=== PATIENT | female | born 1985 | race Caucasian/White ===

== ENCOUNTER 2017-11-18 14:54 | Emergency (ER) | payer OTHER ==
[2017-11-18 15:08] VITALS: BP 127/83
--- NOTE | 2017-11-18 15:43 | UC ---
Respiratory Complaint HPI - HPI Summary HPI Summary: Started getting sick 6 days ago with scratchy throat, mild nasal congestion, and harsh cough. Continues to cough and blow nose with thick, tenacious sputum. Denies fever or audible wheezing. Has an old inhaler that she used last night with limited relief. Mainly concerned about coughing at night, as lying down seems to exacerbate PND and cough. Feels she can deal with symptoms during the day. - History of Current Complaint Chief Complaint: UCRespiratory Stated Complaint: COLD, COUGH Time Seen by Provider: 11/18/17 15:07 Hx Obtained From: Patient Hx Last Menstrual Period: 11/17/17 ?: No Onset/Duration: Gradual Onset, Lasting Days Timing: Constant Severity Initially: Mild Severity Currently: Moderate Character: Cough: Productive, Sputum Description: - thick, green Aggravating Factors: Deep Breaths, Recumbent Position Alleviating Factors: Upright Position Associated Signs And Symptoms: Positive: URI, Nasal Congestion. Negative: Fever , Chills - Allergies/Home Medications Allergies/Adverse Reactions: Allergies Allergy/AdvReac Type Severity Reaction Status Date / Time No Known Allergies Allergy Verified 09/22/16 19:08 PMH/Surg Hx/FS Hx/Imm Hx Previously Healthy: Yes - Surgical History Surgical History: Yes Surgery Procedure, Year, and Place: Right hip debridement - Family History Known Family History: Positive: Other - Anxiety and Depression on Maternal Side - Social History Occupation: Student Alcohol Use: Weekly Substance Use Type: None Smoking Status (MU): Light Every Day Tobacco Smoker Review of Systems Constitutional: Negative Skin: Negative Eyes: Negative ENT: Sore Throat, Nasal Discharge Respiratory: Cough Cardiovascular: Negative Gastrointestinal: Negative Genitourinary: Negative Motor: Negative Neurovascular: Negative Musculoskeletal: Negative Neurological: Negative Psychological: Negative Is Patient Immunocompromised?: No All Other Systems Reviewed And Are Negative: Yes Physical Exam Triage Information Reviewed: Yes Appearance: Well-Appearing, No Pain Distress, Well-Nourished Vital Signs: Initial Vital Signs Temp 99.9 F 11/18/17 15:01 Pulse 61 11/18/17 15:01 Resp 16 11/18/17 15:01 BP 127/83 11/18/17 15:01 Pulse Ox 100 11/18/17 15:01 Vital Signs Reviewed: Yes Eye Exam: Normal Eyes: Positive: Conjunctiva Clear ENT: Positive: Hearing grossly normal, Pharynx normal, Nasal congestion, TMs normal. Negative: Nasal drainage, TM bulging, TM dull, TM red Dental Exam: Normal Neck exam: Normal Neck: Positive: Supple, Nontender, No Lymphadenopathy Respiratory: Positive: Normal breath sounds, No respiratory distress, Other: - freq congested cough. Negative: Rhonchi, Wheezing Cardiovascular Exam: Normal Cardiovascular: Positive: RRR, No Murmur Musculoskeletal Exam: Normal Neurological Exam: Normal Neurological: Positive: Alert Psychological Exam: Normal Skin Exam: Normal - Feels afebrile to touch Diagnostic Evaluation - Laboratory O2 Sat by Pulse Oximetry: 100 Respiratory Course/Dx - Differential Dx/Diagnosis Provider Diagnoses: acute bronchitis, likely viral Discharge - Discharge Plan Condition: Stable Disposition: HOME Prescriptions: Benzonatate [Benzonatate 200 MG] 200 mg PO TID #30 cap Guaifenesin-Codeine [Guaiatussin AC] 5 - 10 ml PO Q6H #120 ml MDD 40mL Patient Education Materials: Acute Bronchitis (ED) Referrals: Mono Best MD [Primary Care Provider] - Additional Instructions: I expect your symptoms to gradually improve over the next 1-2 weeks. If you develop trouble breathing or fever, or if you worsen in any other way, please come back here for a recheck.
== END 2017-11-18 15:40 | disposition home or self-care (01) ==
LOC: UCEAST 14:54
DX: J20.9 Acute bronchitis, unspecified (principal); Z72.0 Tobacco use; Z77.22 Contact with and (suspected) exposure to environmental tobacco smoke (acute) (chronic)
CPT/HCPCS: 99212; G0463

== ENCOUNTER 2019-01-21 21:04 | Emergency (ER) | payer OTHER ==
--- NOTE | 2019-01-21 21:17 | UC ---
FLU HPI - HPI Summary HPI Summary: 33 yo female presents with low grade fever, body aches, fatigue, and dry cough that began yesterday. She has taken ibuprofen for her discomfort with mild relief. She also has some swelling to her right upper gum around a tooth and is concerned that this is infected due to a recent pop corn kernal that got stuck there. Denies SOB, chest pain, abdominal pain, n/v/d/c. - History of Current Complaint Stated Complaint: FLU-LIKE SYM Time Seen by Provider: 01/21/19 21:17 Hx Obtained From: Patient Hx Last Menstrual Period: 11/17/17 Onset/Duration: Sudden Onset Severity Currently: Moderate Severity Initially: Moderate Pain Intensity: 7 Pain Scale Used: 0-10 Numeric - Allergy/Home Medications Allergies/Adverse Reactions: Allergies Allergy/AdvReac Type Severity Reaction Status Date / Time No Known Allergies Allergy Verified 01/21/19 21:22 Home Medications: Home Medications Ibuprofen TAB* [Advil TAB*] 800 mg PO Q6H PRN 01/21/19 [History Confirmed ] PMH/Surg Hx/FS Hx/Imm Hx - Additional Past Medical History Additional PMH: None - Surgical History Surgical History: Yes Surgery Procedure, Year, and Place: Right hip debridement - Family History Known Family History: Positive: Other - Anxiety and Depression on Maternal Side - Social History Lives: With Family Alcohol Use: Weekly Substance Use Type: None Smoking Status (MU): Light Every Day Tobacco Smoker Review of Systems All Other Systems Reviewed And Are Negative: Yes Constitutional: Positive: Fever, Chills, Fatigue, Other - Body aches Skin: Positive: Negative Eyes: Positive: Negative ENT: Positive: Dental Pain, Sore Throat Respiratory: Positive: Cough Cardiovascular: Positive: Negative Gastrointestinal: Positive: Negative Neurovascular: Positive: Negative Musculoskeletal: Positive: Negative Neurological: Positive: Negative Psychological: Positive: Negative Physical Exam - Summary Physical Exam Summary: GENERAL: NAD. WDWN. No pain distress. SKIN: No rashes, sores, lesions, or open wounds. HEENT: Head: AT/NC Eyes: EOM intact. Conjunctiva clear without inflammation or discharge. Ears: Hearing grossly normal. TMs intact, no bulging, erythema, or edema. Nose: Nasal mucosa pink and moist. NTTP maxillary and frontal sinus. Throat: Posterior oropharynx without exudates, erythema, or tonsillar enlargement. Uvula midline. NECK: Supple. Nontender. No lymphadenopathy. CHEST: CTAB. No r/r/w. No accessory muscle use. Breathing comfortably and in no distress. CV: RRR. Without m/r/g. Pulses intact. Cap refill <2seconds NEURO: Alert. PSYCH: Age appropriate behavior. Triage Information Reviewed: Yes Vital Signs: Vital Signs: Temp Pulse Resp BP Pulse Ox 100.3 F 94 18 142/80 98 01/21/19 21:18 01/21/19 21:18 01/21/19 21:18 01/21/19 21:18 01/21/19 21:40 Laboratory Tests 01/21/19 21:32 Influenza A (Rapid) Positive A Vital Signs Reviewed: Yes Dental: Positive: Gross Decay/Caries @ - Throughout. Negative: Percussion Tenderness @, Dental Fracture @, Abscess @, Cellulitis @, Cervical Lymphadenopathy, Bleeding Flu Course/Dx - Course Course Of Treatment: POC flu positive. I do not see any abscess or indication of infection regarding her teeth, although she does have diffuse dental caries. - Differential Dx/Diagnosis Provider Diagnosis: Influenza Discharge - Sign-Out/Discharge Documenting (check all that apply): Patient Departure All imaging exams completed and their final reports reviewed: No Studies - Discharge Plan Condition: Stable Disposition: HOME Prescriptions: Chlorhexidine MW 0.12% 473ML* [Peridex Mouth Wash 0.12%] 15 ml MT BID #1 bottle Oseltamivir CAP* [Tamiflu CAP*] 75 mg PO BID #10 cap Patient Education Materials: Influenza (ED) Referrals: Mono Best MD [Primary Care Provider] - Additional Instructions: If you develop a fever, shortness of breath, chest pain, new or worsening symptoms - please call your PCP or go to the ED. Your blood pressure was high at todays visit. Please see your primary provider within 4 weeks for recheck and re-evaluation. Rest and drink plenty of fluids! Continue taking tylenol/ibuprofen for your fever - Billing Disposition and Condition Condition: STABLE Disposition: Home
[2019-01-21 21:22] VITALS: BP 142/80
[2019-01-21 21:36] LABS: Influenza A Molecular POSITIVE (Negative)
[2019-01-21] MEDS ORDERED: Oseltamivir CAP* 75 MG CAP PO ONE (21:38)
== END 2019-01-21 22:00 | disposition home or self-care (01) ==
LOC: UCEAST 21:04
DX: J11.1 Influenza due to unidentified influenza virus with other respiratory manifestations (principal); K06.8 Other specified disorders of gingiva and edentulous alveolar ridge; F17.290 Nicotine dependence, other tobacco product, uncomplicated
CPT/HCPCS: 99202; A9270-GY; G0463

== ENCOUNTER 2019-06-09 09:25 | Emergency (ER) | payer OTHER ==
--- NOTE | 2019-06-09 09:59 | ED ---
Palpitations / Dysrhythmia - HPI Summary HPI Summary: The patient is a 33 y/o F presenting to [facility] with a chief complaint of gradually worsening of palpitations over the past two weeks with worst episodes occurring yesterday. She reports that she has had intermittent episodes over the course of her life, but they had not been as frequent as they are now. Yesterday, she had experienced 9-10 episodes of and uncomfortable tickle that jumps into throat with associated mildly sharp CP lasting for 3 seconds with each episode. Currently, her pain is rated 1/10 in severity, and she did have an episode of palpitations in the ED since arrival. She denies any fever, chills , erythema of eyes, sore throat, SOB, cough, abdominal pain, N/V, dysuria, hematuria, myalgia, edema, rash, or dizziness. She states that she hasnt been on any recently long travels although she sits at a desk all day with moving around only once an hour, but she has had increased stress secondary to her son being hospitalized recently, which she suspects could be causing the prevalence of the palpitations. She also notes caffeine use with drinking one Thai press of coffee a day. She had some dehydration yesterday likely due to drinking 5- 6 drinks the night before. PCP recommended she come here. PMHx: asthma as child. No cardiac hx. Light every day cigarette smoker, weekly EtOH, no substance use. - History of Current Complaint Chief Complaint: EDDysrhythmPalp Time Seen by Provider: 06/09/19 09:28 Hx Obtained From: Patient Onset/Duration: Lasting Weeks - two, Still Present, Worse Since - yesterday Timing: Intermittent Episodes Lasting: - 3 seconds, up to 9-10 times in a day Severity Initially: Moderate Severity Currently: Mild Character: Irregular Aggravating: Caffeine, Other - possibly stress Alleviating: Nothing Associated Signs & Symptoms: Chest Pain - sharp with palpations - Allergy/Home Medications Allergies/Adverse Reactions: Allergies Allergy/AdvReac Type Severity Reaction Status Date / Time No Known Allergies Allergy Verified 01/21/19 21:22 Home Medications: Home Medications NK [No Home Medications Reported] 06/09/19 [History Confirmed 06/09/19] PMH/Surg Hx/FS Hx/Imm Hx Endocrine/Hematology History: Denies: Hx Diabetes, Hx Thyroid Disease Cardiovascular History: Denies: Hx Hypertension Respiratory History: Reports: Hx Asthma - CHILD Denies: Hx Chronic Obstructive Pulmonary Disease (COPD) GI History: Denies: Hx Ulcer Sensory History: Reports: Hx Contacts or Glasses Denies: Hx Deafness Opthamlomology History: Reports: Hx Contacts or Glasses Denies: Hx Legally Blind EENT History: Denies: Hx Deafness - Surgical History Surgical History: Yes Surgery Procedure, Year, and Place: Right hip debridement - Immunization History Date of Tetanus Vaccine: unknown Infectious Disease History: No Infectious Disease History: Denies: Hx Clostridium Difficile, Hx Hepatitis, Hx Human Immunodeficiency Virus (HIV), Hx of Known/Suspected MRSA, Hx Shingles, Hx Tuberculosis, Traveled Outside the [place] in Last 30 Days - Family History Known Family History: Positive: Other - Anxiety and Depression on Maternal Side Negative: Cardiac Disease - Social History Alcohol Use: Weekly Hx Substance Use: No Substance Use Type: Reports: None Hx Tobacco Use: Yes Smoking Status (MU): Light Every Day Tobacco Smoker Review of Systems Negative: Fever, Chills Negative: Erythema Negative: Sore Throat Positive: Palpitations - "uncomfortable tickle that jumps into throat", Chest Pain - mild sharp with palpitations Negative: Shortness Of Breath, Cough Negative: Abdominal Pain, Vomiting, Nausea Negative: dysuria, hematuria Negative: Myalgia, Edema Negative: Rash Neurological: Other - NEGATIVE: dizziness All Other Systems Reviewed And Are Negative: Yes Physical Exam - Summary Physical Exam Summary: Constitutional: Well-developed, Well-nourished, Alert. (-) Distressed Skin: Warm, Dry HENT: Normocephalic; Atraumatic Eyes: Conjunctiva normal Neck: Musculoskeletal ROM normal neck. (-) JVD, (-) Stridor, (-) Tracheal deviation Cardio: Rhythm regular, rate normal, Heart sounds normal; Intact distal pulses; The pedal pulses are 2+ and symmetric. Radial pulses are 2+ and symmetric. (-) Murmur Pulmonary/Chest wall: Effort normal. (-) Respiratory distress, (-) Wheezes, (-) Rales Abd: Soft, (-) tenderness, (-) Distension, (-) Guarding, (-) Rebound Musculoskeletal: (-) Edema Lymph: (-) Cervical adenopathy Neuro: Alert, Oriented x3 Psych: Mood and affect Normal Triage Information Reviewed: Yes Vital Signs On Initial Exam: Initial Vitals Temp Pulse Resp BP Pulse Ox 98.1 F 77 16 126/86 100 06/09/19 09:33 06/09/19 09:33 06/09/19 09:33 06/09/19 09:33 06/09/19 09:33 Vital Signs Reviewed: Yes Diagnostics - Vital Signs Vital Signs Temp Pulse Resp BP Pulse Ox 06/09/19 09:33 98.1 F 77 16 126/86 100 - Laboratory Result Diagrams: 06/09/19 11:00 06/09/19 11:00 Lab Statement: Any lab studies that have been ordered have been reviewed, and results considered in the medical decision making process. - EKG 926 Cardiac Rate: NL - 77 bpm EKG Rhythm: Sinus Rhythm Summary of EKG Findings: NSR at 77 bpm. No STEMI. Re-Evaluation - Re-Evaluation First Eval Re-Evaluation Time: 12:35 Comment: I discussed results and discharge plan with the patient. Course/Dx - Course Course Of Treatment: Patient is a 33 y/o F with cc of gradual worsening of heart palpitations described as uncomfortable tickle that jumps into throat and associated sharp CP lasting for 3 seconds up to 9-10 episodes over the past two weeks. Denies SOB, cough, dizziness. Notes recent stress and daily caffeine use. No recent long trips but sits at a desk all day for work. No cardiac hx. Upon physical exam, the patient exhibits no acute abnormalities. Blood work is reveals hgb of 10.6, hct of 33, MCV of 74, MCH of 24, and RDW of 17. Troponin is negative. EKG at 926 reveals NSR at 77 bpm without any ischemic changes. In the ED, the patient had an episode of palpitations, and the nurse noted that there was an extra beat on the coke still cleaner. She is dx with microcytic anemia , palpitations, and PVCs. She is advised to take OTC daily iron supplements, and she is expected to see black stool with this. She will also follow up with PCP in 2-3 days. She agrees with this plan. - Diagnoses Provider Diagnoses: Microcytic anemia, Palpitations, PVCs (premature ventricular contractions) Discharge ED - Sign-Out/Discharge Documenting (check all that apply): Patient Departure - Patient will be discharged home. Patient Received Moderate/Deep Sedation with Procedure: No - Discharge Plan Condition: Stable Disposition: HOME Patient Education Materials: Heart Palpitations (DC), Premature Ventricular Contractions (ED), Anemia (ED) Referrals: Mono Best MD [Primary Care Provider] - 3 Days Additional Instructions: We advise you to take over the counter iron daily. Expect to see black stool with this. Follow up with your primary care provider in 2-3 days. RETURN TO THE EMERGENCY DEPARTMENT FOR ANY NEW OR WORSENING SYMPTOMS. - Billing Disposition and Condition Condition: STABLE Disposition: Home - Attestation Statements Document Initiated by Tiki: Yes Documenting Scribe: Nikki Mcdaniels Provider For Whom Tiki is Documenting (Include Credential): Dr. Berto Huang MD Scribe Attestation: Nikki Tristan scribed for Dr. Berto Huang MD on 06/24/19 at 1417. Scribe Documentation Reviewed: Yes Provider Attestation: The documentation as recorded by the Nikki obrien accurately reflects the service I personally performed and the decisions made by me, Dr. Berto Huang MD Status of Scribe Document: Viewed
[2019-06-09 11:40] LABS: ABS Eosinophils 0.2 10^3/ul (0-0.6); ABS Lymphocytes 1.5 10^3/ul (1.0-4.8); ABS Monocytes 0.4 10^3/ul (0-0.8); Eosinophil % 3.3 %; Hematocrit 33 % (35-47); Hemoglobin 10.6 g/dL (12.0-16.0); Lymphocyte % 29.2 %; Mean Corpuscular HGB Conc 32 g/dL (31-36); Mean Corpuscular Hemoglobin 24 pg (27-31); Mean Corpuscular Volume 74 fL (80-97); Nucleated Red Blood Cells % 0.1; Platelet Count 337 10^3/uL (150-450); Red Blood Count 4.44 10^6 /uL (3.70-4.87); Red Cell Distribution Width 17 % (10-15); White Blood Count 5.1 10^3/uL (3.5-10.8)
[2019-06-09 11:41] LABS: Albumin 4.3 g/dL (3.2-5.2); Albumin/Globulin Ratio 1.7 (1-3); BUN/Creatinine Ratio 17.9 (8-20); EGFR African American 123.4 (>60); Globulin 2.5 g/dL (2-4); Magnesium 2.1 mg/dL (1.9-2.7); Potassium 3.9 mmol/L (3.5-5.0); Total Bilirubin 0.4 mg/dL (0.2-1.0); Total Protein 6.8 g/dL (6.4-8.9)
[2019-06-09 12:06] LABS: TSH (Thyroid Stimulating Horm) 1.94 mcIU/mL (0.34-5.60)
[2019-06-09 12:26] LABS: Microcytosis 2+
[2019-06-09 13:02] VITALS: BP 119/90
== END 2019-06-09 13:02 | disposition home or self-care (01) ==
LOC: ED 09:25
DX: D50.9 Iron deficiency anemia, unspecified (principal); R00.2 Palpitations; I49.3 Ventricular premature depolarization; R07.89 Other chest pain; F17.200 Nicotine dependence, unspecified, uncomplicated
CPT/HCPCS: 36415; 80053; 83605; 83735; 84439; 84443; 84484; 85025; 93005; 99283